=== PATIENT | male | born 1985 | race Caucasian/White ===

== ENCOUNTER 2021-09-19 13:26 | Outpatient (CLI) | payer BC, SELFPAY ==
[2021-09-19 14:03] LABS: Anion Gap 5 mmol/L (8-16); Blood Urea Nitrogen 22 mg/dL (9-20); Calcium 9.1 mg/dL (8.4-10.2); Carbon Dioxide 28 mmol/L (22-30); Chloride 104 mmol/L (98-107); Estimated Glomerular Filt Rate > 60; Glucose 103 mg/dL (65-110); Potassium 4.4 mmol/L (3.4-5.0); Sodium 137 mmol/L (137-145)
== END 2021-09-19 13:27 | disposition home or self-care (01) ==
LOC: ANHSURGERY 13:29
PROVIDERS: Anesthesiology; PCP Family Medicine; Visit Provider Plastic Surgery
DX: Z01.818 Encounter for other preprocedural examination (principal); Z79.899 Other long term (current) drug therapy
CPT/HCPCS: 36415; 80048

== ENCOUNTER 2021-09-22 01:38 | Day surgery (SDC) | payer BC, SELFPAY ==
[2021-09-16 14:04] VITALS: BMI 35.7
--- NOTE | 2021-09-16 14:12 | PC.NURSE ---
Report to the Outpatient Waiting Room, entrance under the green pavilion located off [facility], at time 0600 on date 09/22/21. OR Time: 0730. - You and your visitor will be asked a series of questions to screen for COVID 19 for your protection. - Only one visitor is allowed at this time. - The patient visitor is requested to leave or wait in car when not with patient. - A mask is required within the hospital. Patients may have clear liquids (water, carbonated beverages, clear teas, apple juice) until 3 hours prior to surgery (0430) with a maximum of 20 ounces. - No food from midnight until time of surgery Take the following medications with a SIP of water the morning of surgery: WELLBUTRIN, INHALER IF NEEDED Medications to discontinue per physician: VITAMINS/SUPPLEMENTS Date to take last dose: 09/18/21 Please no make-up, nail urdu, hairspray, perfume, deodorant, or body powder the day of surgery. No jewelry (including any body piercings) or valuables the day of surgery, leave them at home. Please take a shower or bath the night before, or the morning of, surgery with an antibacterial soap. Wear comfortable, loose fitting clothing. - Jewelry must be removed prior to entering the operating room. Rings and piercings that are not removed may be cut off. - The hospital will not accept responsibility for valuables. - Please leave all valuables, including medications, at home the day of surgery. If you are going home after surgery, a licensed food mobile driver must drive you home. - NO public transportation without another adult. - We recommend that an adult stay with you for 24 hours following discharge. - We also recommend that you do not drive, make important decision, drink alcoholic beverages, or take any drugs that were not prescribed by your health care provider for at least 24 hours after your discharge time. Follow any additional instructions given to you from your surgeon. If you or anyone in your household have experienced Covid symptoms in the past week, please notify your surgeon or the nurse liaison at the phone number below for possible testing. Telephone instructions given to MARISOL DAVIS and asked if any additional questions and then verbalized understanding. Patient advised to call surgeon office or pre surgery nurse liaison [phone] if any additional questions.
[2021-09-22 06:08] VITALS: BP 136/75; PULSE 64; RESP 20; TEMP 36.4; O2SAT 100
[2021-09-22] MEDS: LACTATED RINGERS 1,000 ML 30 ML IV CONT (06:25)
--- NOTE | 2021-09-22 06:48 | WPDANESEPPF ---
Anes - Initial Pre Proc Eval Procedure: Operation Date: 09/22/21 07:30 Proposed Procedures p Left Open Carpal Tunnel Release, Left Ulnar Neuroplasty at Elbow - Logan Loredo MD Date/Time: 09/22/21 06:48 Surgeon: Logan Loredo MD Pre Op Diagnosis: left carpal and cubital tunnel syndrome Patient Data Age: 35 Gender: M Height: 1.65 m Weight: 98.5 kg Last Vital Signs Temp 36.4 C L 09/22/21 06:08 Pulse 64 09/22/21 06:08 Resp 20 09/22/21 06:08 BP 136/75 09/22/21 06:08 Pulse Ox 100 09/22/21 06:08 O2 Del Method Room Air 09/22/21 06:08 Allergies Allergy/AdvReac Type Severity Reaction Status Date / Time iodine Allergy Severe Anaphylaxis Verified 09/22/21 06:07 shellfish derived Allergy Severe Anaphylaxis Verified 09/22/21 06:07 strawberry Allergy Severe Anaphylaxis Verified 09/22/21 06:07 Home Medications Medication Instructions Recorded Confirmed Type albuterol sulfate 90 mcg/actuation 1 inh inhalation Q6H PRN 09/16/21 09/16/21 History aerosol inhaler Bronchospasm bupropion HCl 300 mg 24 hr tablet, 300 mg PO HS 09/16/21 09/22/21 History extended release (Wellbutrin XL) hydrochlorothiazide 25 mg tablet 25 mg PO HS 09/16/21 09/22/21 History losartan 100 mg tablet 100 mg PO HS 09/16/21 09/22/21 History multivitamin 1 tablet PO HS 09/16/21 09/22/21 History Patient hx anesthesia problems: none Family hx anesthesia problems: none Results Review: All pre-operative results and documents have been reviewed as part of the pre-operative evaluation. [facility] Past Medical History Medical History (Updated 09/22/21 @ 06:48 by Angel Perez MD) Anxiety Asthma HTN (hypertension) Obesity Social History Social History Smoking packs per day: 0.25 Smoking cigarettes per day: 5.0 Years smoked: 15 Smoking pack-years: 3.75 Smoking status: Former smoker Tobacco type: cigarettes Smoking end date: 08/29/21 Alcohol intake: current Drinks per week: 6 Substance use: never Substance use type: does not use Living arrangements: with family Spiritual care concerns: No Anes - Eval Final PreProcedure Day of Procedure 09/22/21 06:48 Patient weight: obese Heart: regular rate and rhythm Lungs: clear to auscultation Airway: Mallampati scale class II Neurological: alert and oriented Last oral intake: >/= 8 hours ASA classification: III Emergent: no Anesthetic plan: proceed Anesthesia type and monitoring: general LMA and standard monitoring Results Review: All pre-operative results and documents have been reviewed as part of the pre-operative evaluation. Informed Consent: The patient's anesthetic plan and its attendant risks and benefits were discussed with the patient/family/POA. Questions were solicited and answers provided to the satisfaction of the patient/family/POA.
--- NOTE | 2021-09-22 07:04 | WPDHPUPDATE1 ---
History and Physical Update Update Date/Time: 09/22/21 07:04 History and Physical has been reviewed, including an updated exam of the patient. There are NO changes in the patient's condition. Risks, benefits, and alternatives have been discussed and questions answered. Patient agrees to proceed with procedure.
[2021-09-22] MEDS: LIDO 1%/EPINEPHRINE/PF 1:200,000 30 ML VIAL 10 ML XX (07:40)
--- NOTE | 2021-09-22 08:09 | W.PM.PROC2 ---
Procedure Note - Detailed Date of Procedure 09/22/21 Pre-op Diagnosis left carpal and cubital tunnel syndrome Post-op Diagnosis Same Procedure Performed Left open carpal tunnel release and left ulnar neuroplasty at the elbow Surgeon Logan Loredo MD Procurement Agent Emanuel Anesthesia General Description of Procedure The left carpal tunnel and cubital tunnel regions on the skin were marked as the patient was in the holding area. He was then taken to the operating room where he was placed supine on the operating table. He was given general IV sedation and the left upper extremity was prepped and draped in the usual fashion. A time-out was held and confirmed. The 2 sites were marked for incision and locally infiltrated with 1% lidocaine with epinephrine. The extremity was exsanguinated and the tourniquet inflated to 250 mmHg. The initial incision was in the palm as marked. The dissection was carried through the subcutaneous tissue hand through the palmar aponeurosis with sharp and blunt dissection with scissors. The transverse retinaculum was incised with a 15. Blade. We were able to provided retraction such that the ligament could be completely divided with the 15 blade. No unusual anatomy was noted. The skin wound was closed with interrupted 4-0 nylon suture. Attention was turned to the elbow site. The elbow was supported on folded towels and flexed. The incision was made as marked. Dissection was carried with blunt and sharp dissection through the subcutaneous tissue to the interval between medial epicondyle and olecranon. The fascia just anterior to the triceps was opened and the ulnar nerve identified. This was released easily in a proximal direction. The Cohen ligament was thick and dense but was also divided easily and the division continued into flexor muscle fascia. There appeared to be no unusual anatomy. The nerve did not sublux as the elbow was ranged through a wide arc of flexion. Bleeding points were electrocoagulated and the tourniquet was released prior to skin closure. The wound was closed with intradermal 3-0 Monocryl at the cross hatched mccarthy and running intradermal 3-0 Monocryl to close the skin The usual bandage with Xeroform gauze and Cecil wrap was applied. She is discharged from the operating room stable condition. Discharged home with instructions in wound care and follow-up. A prescription hydrocodone 5/325 6 was sent to his pharmacy Estimated Blood Loss 2 Drains No Packing No Pathology None sent Complications No immediate complications Condition Stable Disposition Same day
[2021-09-22 08:12] VITALS: BP 108/65; PULSE 85; RESP 16; O2SAT 98
[2021-09-22 08:40] VITALS: BP 118/61; PULSE 84; RESP 20
[2021-09-22 09:10] VITALS: BP 123/82; PULSE 54; RESP 20
== END 2021-09-22 09:15 | disposition home or self-care (01) ==
PROVIDERS: PCP Family Medicine; Visit Provider Plastic Surgery
PROC: (CPT 64721; principal; 2021-09-22 07:30)
DX: G56.02 Carpal tunnel syndrome, left upper limb (principal); G56.22 Lesion of ulnar nerve, left upper limb; J45.909 Unspecified asthma, uncomplicated; I10 Essential (primary) hypertension; F41.9 Anxiety disorder, unspecified; E66.9 Obesity, unspecified; Z68.36 Body mass index [BMI] 36.0-36.9, adult; Z87.891 Personal history of nicotine dependence; Z79.51 Long term (current) use of inhaled steroids
CPT/HCPCS: 64721; 64718; A9270; J2250; J2704; J3010; J7120

== ENCOUNTER 2021-11-16 00:04 | Day surgery (SDC) | payer BC, SELFPAY ==
[2021-11-10 18:15] VITALS: BMI 35.7
--- NOTE | 2021-11-10 18:19 | PC.NURSE ---
Report to the Outpatient Waiting Room, entrance under the green pavilion located off [facility], 6:00am on date 11/16/21. OR Time: 7:30am. - You and your visitor will be asked to self-screen and do not enter if you have any COVID symptoms. - Only one visitor and NO children visitors are allowed at this time. - The patient visitor is requested to leave or wait in car when not with patient due to restrictions. - A mask is required within the hospital. Patients may have clear liquids (water, carbonated beverages, clear teas, apple juice) until 3 hours prior to surgery with a maximum of 20 ounces. 4:30am - No food from midnight until time of surgery - Infants may have breast milk until 4 hours before surgery, infant formula 6 hours prior to surgery. - Children will be allowed to drink immediately following surgery. If applicable, please bring a bottle or sippy cup to assist with drinking. Juice, water, soda, and popsicles are readily available. For infants on formula, please bring formula the day of surgery. Pacifiers are allowed. Take the following medications with a SIP of water the morning of surgery: n/a Medications to discontinue per physician Magnesium Supplement Date to take last dose 11/13/21 Please no make-up, nail luxembourgish, hairspray, perfume, deodorant, or body powder the day of surgery. No jewelry (including any body piercings) or valuables the day of surgery, leave them at home. Please take a shower or bath the night before, or the morning of, surgery with an antibacterial soap. Wear comfortable, loose fitting clothing. Children are encouraged to wear pajamas. - Jewelry must be removed prior to entering the operating room. Rings and piercings that are not removed may be cut off. - The hospital will not accept responsibility for valuables. - Please leave all valuables, including medications, at home the day of surgery. If you are going home after surgery, a licensed solid waste truck driver must drive you home. - NO public transportation without another adult. - We recommend that an adult stay with you for 24 hours following discharge. - We also recommend that you do not drive, make important decision, drink alcoholic beverages, or take any drugs that were not prescribed by your health care provider for at least 24 hours after your discharge time. For Pediatric surgeries, we recommend two adults accompany the child home (only one inside the building at this time). Follow any additional instructions given to you from your surgeon. If you or anyone in your household have experienced Covid symptoms in the past week, please notify your surgeon or the nurse liaison at the phone number below for possible testing. Telephone instructions given to Cliff Perez and asked if any additional questions and then verbalized understanding. Patient advised to call surgeon office or pre surgery nurse liaison [phone] if any additional questions.
--- NOTE | 2021-11-15 14:02 | WPDANESEPPF ---
Anes - Initial Pre Proc Eval Procedure: Operation Date: 11/16/21 08:15 Proposed Procedures p Right Open Carpal Tunnel Release and Right Ulnar Neuroplasty at the Elbow - Logan Loredo MD Date/Time: 11/15/21 14:02 Surgeon: Logan Loredo MD Pre Op Diagnosis: Rt Carpal Tunnel Syn, Rt Cubital Mendez Syn Patient Data Age: 36 Gender: M Height: 1.65 m Weight: 97.52 kg Allergies Allergy/AdvReac Type Severity Reaction Status Date / Time iodine Allergy Severe Anaphylaxis Verified 11/16/21 06:17 shellfish derived Allergy Severe Anaphylaxis Verified 11/16/21 06:17 strawberry Allergy Severe Anaphylaxis Verified 11/16/21 06:17 Home Medications Medication Instructions Recorded Confirmed Type albuterol sulfate 90 mcg/actuation 1 inh inhalation Q6H PRN 09/16/21 11/10/21 History aerosol inhaler Bronchospasm bupropion HCl 300 mg 24 hr tablet, 300 mg PO HS 09/16/21 11/16/21 History extended release (Wellbutrin XL) hydrochlorothiazide 25 mg tablet 25 mg PO HS 09/16/21 11/16/21 History losartan 100 mg tablet 100 mg PO HS 09/16/21 11/16/21 History Patient hx anesthesia problems: none Family hx anesthesia problems: none Results Review: All pre-operative results and documents have been reviewed as part of the pre-operative evaluation. [facility] Past Medical History Medical History (Updated 09/22/21 @ 06:48 by Angel Perez MD) Anxiety Asthma HTN (hypertension) Obesity Social History Social History Smoking packs per day: 0.5 Smoking cigarettes per day: 10.0 Years smoked: 16 Smoking pack-years: 8.00 Smoking status: Former smoker Tobacco type: cigarettes Second hand tobacco smoke exposure: No Smoking end date: 03/26/21 Alcohol intake: current Drinks per week: 3 Alcohol use details: Beer Substance use: never Substance use type: does not use Living arrangements: with family Spiritual care concerns: No Anes - Eval Final PreProcedure Day of Procedure 11/15/21 14:02 Patient weight: obese Heart: regular rate and rhythm Lungs: clear to auscultation Airway: Mallampati scale class 1 Neurological: alert and oriented Last oral intake: >/= 8 hours ASA classification: III Emergent: no Anesthetic plan: proceed Anesthesia type and monitoring: general GIVS and standard monitoring Results Review: All pre-operative results and documents have been reviewed as part of the pre-operative evaluation. Informed Consent: The patient's anesthetic plan and its attendant risks and benefits were discussed with the patient/family/POA. Questions were solicited and answers provided to the satisfaction of the patient/family/POA.
[2021-11-16 06:25] VITALS: BP 135/85; PULSE 67; RESP 16; TEMP 36.1; O2SAT 100
[2021-11-16] MEDS: LACTATED RINGERS 1,000 ML 30 ML IV CONT (06:51)
--- NOTE | 2021-11-16 07:12 | WPDHPUPDATE1 ---
History and Physical Update Update Date/Time: 11/16/21 07:12 History and Physical has been reviewed, including an updated exam of the patient. There are NO changes in the patient's condition. Risks, benefits, and alternatives have been discussed and questions answered. Patient agrees to proceed with procedure.
[2021-11-16] MEDS: LIDO 1%/EPINEPHRINE 1:100,000 50 ML VIAL INFILTRATE (09:08)
[2021-11-16 09:25] VITALS: BP 96/41; PULSE 72; RESP 12; TEMP 36.3; O2SAT 96
--- NOTE | 2021-11-16 09:33 | P.OP_ITS ---
Procedure Note - Detailed Date of Procedure 11/16/21 Pre-op Diagnosis Rt Carpal Tunnel Syn, Rt Cubital Mendez Syn Post-op Diagnosis Same Procedure Performed Right open carpal tunnel release and right ulnar neuroplasty at the elbow Surgeon Logan Loredo MD Marketing Research Analyst Gregory OWENS Description of Procedure The carpal tunnel and cubital tunnel were marked on the patient's skin in the holding area. He was taken to the operating room where he was placed supine on the operating table. He was given IV sedation and the right upper extremity was prepped and draped in usual fashion. A time-out was held and confirmed. The 2 sites were marked for incisions and locally infiltrated with 1% lidocaine with epinephrine. The extremity was exsanguinated and the tourniquet inflated to 250 mmHg. Surgery was begun at the hand where the incision was made in the palm. Blunt dissection through the subcutaneous tissue revealed palmar aponeurosis. This and the transverse retinaculum were incised with a 15. Blade. Under 3 point retraction the ligament was divided distally and then proximally to completely release it. There was no unusual anatomy noted. The skin was closed with interrupted 4-0 nylon suture. Attention was turned to the elbow which was flexed and supported on folded towels. The incision was made as marked. Blunt and sharp dissection through the subcutaneous tissue revealed several bleeding points and a robust muscle crossing between the medial epicondyle and the ulna. The nerve was identified proximal to that. There was minimal impingement from the intermuscular septum. The anconeus epitrochlearis however was divided off the medial epicondyle and Cohen's ligament was divided as well, freeing the ulnar nerve and allowing dissection under the flexor muscle fascia with division of an inch or so of muscular fascia. There was no subluxation of the ulnar nerve. Estimated Blood Loss 2 Drains No Packing No Pathology None sent Complications No immediate complications Condition Stable Disposition Same day
[2021-11-16 09:55] VITALS: BP 109/76; PULSE 62; RESP 16
== END 2021-11-16 10:15 | disposition home or self-care (01) ==
PROVIDERS: PCP Family Medicine; Visit Provider Plastic Surgery
PROC: (CPT 64721; principal; 2021-11-16 08:15)
DX: G56.01 Carpal tunnel syndrome, right upper limb (principal); G56.21 Lesion of ulnar nerve, right upper limb
CPT/HCPCS: 64721; 64718; A9270; J2250; J2704; J3010; J7120